=== PATIENT | female | born 1950 | race Two or more races ===

== ENCOUNTER 2024-03-17 07:43 | Inpatient (IN) | payer MEDICARE, BC ==
[~2024-03-17] VITALS: Ht 160 cm; Wt 55.8 kg
[2024-03-17] MEDS: SODIUM CHLORIDE 0.9% 1,000 ML IV SCH (10:00)
[2024-03-17] MEDS ORDERED: NITROGLYCERIN 0.4 MG SL TAB SL PRN (10:30)
[2024-03-17] MEDS ORDERED: ONDANSETRON HCL 4 MG/2 ML VIAL IV PRN (10:30)
[2024-03-17] MEDS ORDERED: MORPHINE SULFATE INJ 2 MG/ml SYRG IV PRN ×2 (10:30→17:00)
[2024-03-17 12:15] VITALS: BP 152/94; PULSE 103; RESP 20; TEMP 99.5; O2SAT 98
[2024-03-17 12:25] VITALS: O2SAT 95
[2024-03-17 13:00] VITALS: BP 152/94; PULSE 104; RESP 32; TEMP 99.5; O2SAT 98
[2024-03-17 13:02] LABS: Hematocrit 30.6 % (36.0-46.0); Hemoglobin 10.2 g/dL (12.2-16.2); Mean Corpuscular Hemoglobin 29.1 pg (28.0-32.0); Mean Corpuscular Hgb Conc. 33.2 g/dL (32.0-36.0); Mean Corpuscular Volume 87.5 fL (80.0-100.0); Red Cell Distribution Width 17.6 % (11.8-14.3); White Blood Cell 3.5 10^3/uL (4.4-10.8)
[2024-03-17 13:06] LABS: Basophils % (manual) 0 (0.0-2.0); Blast Cells 0; Metamyelocytes % 0; Myelocytes % 0; Promyelocytes % 0
[2024-03-17 13:13] LABS: INR 1.1 (0.9-1.15); Partial Thromboplastin Time 32.6 SEC (24.5-34.5); Prothrombin Time 11.5 sec (9.3-11.8)
[2024-03-17 13:15] LABS: Alanine Aminotransferase 69 U/L (7-40); Albumin 4.7 g/dL (3.2-4.8); Alkaline Phosphatase 137 U/L (46-116); Anion Gap 11 (5-15); Anisocytosis Slight; Aspartate Aminotransferase 68 U/L (13-40); BUN/Creatinine Ratio 10.6 (10.0-20.0); Band Neutrophils % (manual) 2; Bilirubin, Total 0.9 mg/dL (0.2-1.0); Blood Urea Nitrogen 7 mg/dL (9-23); Calcium 9.5 mg/dL (8.5-10.1); Carbon Dioxide 20 mmol/L (20-30); Chloride 107 mmol/L (98-107); Eosinophils % (manual) 1 (0-7); Glucose 99 mg/dL (74-106); Lymphocytes % (manual) 35 (10.0-50.0); Monocytes % (manual) 21 (0-12); Platelet Estimate Decreased; Reactive Lymphocytes 4; Sodium 138 mmol/L (136-145); Total Protein 7.2 g/dL (5.7-8.2)
[2024-03-17 13:25] LABS: CRP High Sensitivity 10.27 mg/dL (<1.0)
[2024-03-17] MEDS ORDERED: EMPA1TAB3 PO (13:33)
[2024-03-17] MEDS ORDERED: MONT-8 PO (13:33)
[2024-03-17] MEDS ORDERED: ROSU10TA16 PO (13:33)
[2024-03-17] MEDS ORDERED: LOSA-534 PO (13:33)
[2024-03-17] MEDS ORDERED: CYAN1TAB14 PO (13:33)
[2024-03-17] MEDS ORDERED: LEV75T PO (13:33)
[2024-03-17] MEDS ORDERED: ASCO500T11 PO (13:33)
[2024-03-17] MEDS ORDERED: MULT-1018 PO (13:33)
[2024-03-17] MEDS ORDERED: B-COCAP34 OR (13:33)
[2024-03-17] MEDS ORDERED: MAGN100C5 PO (13:33)
[2024-03-17] MEDS ORDERED: CHOL200031 PO (13:33)
[2024-03-17] MEDS ORDERED: DENO60SO SC (13:33)
[2024-03-17] MEDS ORDERED: METF-370 PO (13:33)
[2024-03-17] MEDS ORDERED: MAGN200T9 PO (13:33)
[2024-03-17] MEDS ORDERED: CALC-242 PO (13:33)
[2024-03-17] MEDS: ACETAMINOPHEN 325 MG TAB PO PRN (15:22)
[2024-03-17 17:00] VITALS: BP 107/69; PULSE 114; RESP 26; TEMP 98.4; O2SAT 94
[2024-03-17] MEDS ORDERED: DEXTROSE (50%) 50ML SYRG IV PRN (17:00)
[2024-03-17] MEDS: ACCU-CHEK COMFORT CURVE STRIP VI SCH (17:00)
[2024-03-17] MEDS: InsuLIN REG 1unit/0.01ml Soln (100units/ml) SC SCH (17:00)
[2024-03-17] MEDS ORDERED: hydrALAZINE HCL 20 MG/ML VL IV PRN (17:15)
[2024-03-17 18:41] LABS: Triglycerides 177 mg/dL (< 150)
[2024-03-17 18:42] LABS: LDL Cholesterol 51 mg/dL (< 100)
[2024-03-17 18:43] LABS: HDL Cholesterol 24 mg/dL (40-59)
[2024-03-17 18:44] LABS: Cholesterol 96 mg/dL (< 200)
[2024-03-17 18:49] LABS: Urine Bacteria None Seen /hpf (None Seen)
[2024-03-17 19:13] LABS: Wright Stain Ready for Review
[2024-03-17 19:26] LABS: Urine Blood TRACE /uL (Negative); Urine Clarity Clear (Clear); Urine Color Light-Yellow (Yellow); Urine Protein, UAD 1+ (Negative); Urine Urobilinogen Normal (Negative); Urine WBC 3 /hpf (0 - 5)
[2024-03-17 21:00] VITALS: BP 150/84; PULSE 92; RESP 20; TEMP 98.7; O2SAT 96
[2024-03-17] MEDS: MONTELUKAST SODIUM 10 MG TAB PO SCH (21:14)
[2024-03-18] VITALS (13 sets, daily range): BP systolic 117–164; BP diastolic 62–80; PULSE 91–117; RESP 18–22; TEMP 98.3–102.3; O2SAT 95–99
[2024-03-18 05:51] LABS: COVID19 ANTIGEN SOFIA FIA NEGATIVE (NEGATIVE); Rapid Influenza A Negative (Negative); Rapid Influenza B Negative (Negative)
[2024-03-18 06:59] LABS: Hematocrit 27.2 % (36.0-46.0); Hemoglobin 9.2 g/dL (12.2-16.2); Mean Corpuscular Hemoglobin 29.5 pg (28.0-32.0); Mean Corpuscular Hgb Conc. 33.7 g/dL (32.0-36.0); Mean Corpuscular Volume 87.4 fL (80.0-100.0); Red Blood Cells 3.11 10^6/uL (4.0-5.20); Red Cell Distribution Width 17.9 % (11.8-14.3); White Blood Cell 5.3 10^3/uL (4.4-10.8)
[2024-03-18] MEDS: LEVOTHYROXINE SODIUM 25 MCG TAB PO SCH (06:59)
[2024-03-18 07:17] LABS: Basophils % (manual) 0 (0.0-2.0); Blast Cells 0; Eosinophils % (manual) 0 (0-7); Metamyelocytes % 0; Myelocytes % 0; Promyelocytes % 0; Reactive Lymphocytes 0
[2024-03-18 07:19] LABS: Alanine Aminotransferase 63 U/L (7-40); Alkaline Phosphatase 127 U/L (46-116); Anion Gap 11 (5-15); Aspartate Aminotransferase 50 U/L (13-40); BUN/Creatinine Ratio 11.9 (10.0-20.0); Bilirubin, Total 0.7 mg/dL (0.2-1.0); Blood Urea Nitrogen 8 mg/dL (9-23); Carbon Dioxide 21 mmol/L (20-30); Chloride 107 mmol/L (98-107); Glucose 128 mg/dL (74-106); Potassium 3.5 mmol/L (3.5-5.1); Sodium 139 mmol/L (136-145); Total Protein 6.1 g/dL (5.7-8.2)
[2024-03-18 08:38] LABS: Band Neutrophils % (manual) 5; Lymphocytes % (manual) 31 (10.0-50.0); Monocytes % (manual) 30 (0-12)
[2024-03-18 08:40] LABS: Anisocytosis Slight; Platelet Estimate Decreased
[2024-03-18] MEDS: cefTRIAXone 1GM/50ML D5W 50 ML IV SCH (09:26)
[2024-03-18] MEDS: CHOLECALCIFEROL (VITD3) 1,000UNIT=25mCg TAB PO SCH (09:27)
[2024-03-18] MEDS: CYANOCOBALAMIN 500 MCG TAB PO SCH (09:27)
[2024-03-18] MEDS: EMPAGLIFLOZIN 10 MG TAB PO SCH (09:27)
[2024-03-18] MEDS: ASCORBIC ACID 500 MG TAB PO SCH (09:27)
[2024-03-18] MEDS: LOSARTAN POTASSIUM 50 MG TAB PO SCH (09:28)
[2024-03-18] MEDS: ALBUTEROL SULF 2.5 MG/0.5ML(0.5%) NEB SOLN NEB PRN (16:35)
[2024-03-18] MEDS: guaiFENesin-DM 100/10mg/5ml SYR PO PRN (17:07)
[2024-03-18] MEDS ORDERED: ALBUTEROL SULF HFA 90MCG INH 200DOSE IN SCH (22:00)
[2024-03-19] VITALS (11 sets, daily range): BP systolic 116–135; BP diastolic 63–79; PULSE 91–125; RESP 15–22; TEMP 97.8–101.3; O2SAT 94–99
[2024-03-19] MEDS: IOHEXOL 350 MG/ML 100ML IJ ONE (00:31)
[2024-03-19] MEDS: GADOTERATE MEG 10 MMOL/20ml INJ (0.5MMOL/ml) IV ONE (00:32)
[2024-03-19 07:17] LABS: Hematocrit 25.1 % (36.0-46.0); Hemoglobin 8.5 g/dL (12.2-16.2); Mean Corpuscular Hemoglobin 29.6 pg (28.0-32.0); Mean Corpuscular Volume 86.9 fL (80.0-100.0); Red Blood Cells 2.89 10^6/uL (4.0-5.20); Red Cell Distribution Width 17.7 % (11.8-14.3)
[2024-03-19 07:28] LABS: Basophils % (manual) 0 (0.0-2.0); Eosinophils % (manual) 0 (0-7); Metamyelocytes % 0; Myelocytes % 0; Promyelocytes % 0
[2024-03-19 07:39] LABS: Alanine Aminotransferase 81 U/L (7-40); Alkaline Phosphatase 128 U/L (46-116); Anion Gap 12 (5-15); Aspartate Aminotransferase 55 U/L (13-40); BUN/Creatinine Ratio 13.1 (10.0-20.0); Blood Urea Nitrogen 8 mg/dL (9-23); Calcium 8.6 mg/dL (8.5-10.1); Carbon Dioxide 19 mmol/L (20-30); Chloride 110 mmol/L (98-107); Glucose 99 mg/dL (74-106); Potassium 3.5 mmol/L (3.5-5.1); Sodium 141 mmol/L (136-145)
[2024-03-19 07:40] LABS: Albumin 3.9 g/dL (3.2-4.8)
[2024-03-19 07:41] LABS: Bilirubin, Total 0.7 mg/dL (0.2-1.0); Total Protein 6.2 g/dL (5.7-8.2)
[2024-03-19 08:24] LABS: Band Neutrophils % (manual) 3; Blast Cells 5; Lymphocytes % (manual) 41 (10.0-50.0); Monocytes % (manual) 18 (0-12); Reactive Lymphocytes 4
[2024-03-19 08:25] LABS: Platelet Estimate Decreased
[2024-03-19 08:53] LABS: Hepatitis B Core Total AB Negative (Negative)
[2024-03-19] MEDS: fentaNYL CITRATE 100 MCG/2 ML VL IV ONE (09:30)
[2024-03-19] MEDS: MIDAZOLAM HCL 2MG/2ML 2ml VIAL (1mg/ml) IV ONE (09:30)
[2024-03-19 09:40] LABS: Hepatitis A Total Antibody Positive (Negative); Hepatitis B Surface Antibody Negative (Negative); Hepatitis B Surface Antigen Negative (Negative); Hepatitis C Antibody Negative (Negative)
[2024-03-19 10:44] LABS: Free T4 (Free Thyroxine) 1.09 ng/dL (0.89-1.76)
[2024-03-19 10:45] LABS: Ferritin 500.9 ng/mL (10-291)
[2024-03-20] VITALS (8 sets, daily range): BP systolic 127–141; BP diastolic 72–81; PULSE 80–110; RESP 17–20; TEMP 98–101.3; O2SAT 92–98
[2024-03-20 06:05] LABS: Hematocrit 25.3 % (36.0-46.0); Hemoglobin 8.8 g/dL (12.2-16.2); Mean Corpuscular Hemoglobin 29.7 pg (28.0-32.0); Mean Corpuscular Hgb Conc. 34.7 g/dL (32.0-36.0); Mean Corpuscular Volume 85.5 fL (80.0-100.0); Red Blood Cells 2.96 10^6/uL (4.0-5.20); Red Cell Distribution Width 17.7 % (11.8-14.3); White Blood Cell 6.4 10^3/uL (4.4-10.8)
[2024-03-20 06:26] LABS: Albumin 4.1 g/dL (3.2-4.8); Bilirubin, Total 0.7 mg/dL (0.2-1.0); Total Protein 6.5 g/dL (5.7-8.2)
[2024-03-20] MEDS: HYDROcodone-ACET 5/325MG TAB PO PRN (06:59)
[2024-03-20 07:10] LABS: Bilirubin, Direct 0.3 mg/dL (<0.3); Promyelocytes % 0
[2024-03-20] MEDS: ENSURE CLEAR Mixed Berry 8oz Carton PO SCH (08:00)
[2024-03-20 09:07] LABS: Anti-Nuclear Antibody Direct Negative (Negative)
[2024-03-20 09:35] LABS: Band Neutrophils % (manual) 3; Basophils % (manual) 1 (0.0-2.0); Blast Cells 6; Eosinophils % (manual) 1 (0-7); Lymphocytes % (manual) 28 (10.0-50.0); Metamyelocytes % 1; Monocytes % (manual) 29 (0-12); Myelocytes % 2; Platelet Estimate Decreased; Reactive Lymphocytes 6
[2024-03-20] MEDS ORDERED: ENOXAPARIN SOD 40 MG/0.4 ML SYRINGE SC SCH (10:00)
[2024-03-20 10:06] LABS: EBV Ab VCA IgM Antibody <36.0 U/mL (0.0-35.9)
[2024-03-20] MEDS: IRON SUCROSE COMPLEX 100 ML IV SCH (12:18)
[2024-03-20] MEDS: LIDOCAINE 2%HCL (LOCAL ANESTH.) INJ 10ml MDV ONE (15:44)
== END 2024-03-20 15:10 | disposition short-term general hospital (02) | DRG 835 ==
LOC: CENTRAL 11:56 → TELE-CENTR 12:11 → CENTRAL 03-19 14:58
PROVIDERS: ADMIT Hospitalist; ATTEND Hospitalist
PROC: 07DR3ZX Extraction of Iliac Bone Marrow, Percutaneous Approach, Diagnostic (ICD-10-PCS; principal; 2024-03-19)
DX: C92.00 Acute myeloblastic leukemia, not having achieved remission (principal); D61.818 Other pancytopenia; E11.9 Type 2 diabetes mellitus without complications; I10 Essential (primary) hypertension; E03.9 Hypothyroidism, unspecified; E78.5 Hyperlipidemia, unspecified; R74.01 Elevation of levels of liver transaminase levels; Z80.0 Family history of malignant neoplasm of digestive organs; Z82.49 Family history of ischemic heart disease and other diseases of the circulatory system
CPT/HCPCS: 10005; 36415; 71260; 72157; 72158; 72192; 73620; 74177; 77012; 80053; 80061; 80076; 81001; 82306; 82550; 82607; 82728; 82962; 83540; 83615; 84439; 84443; 85007; 85027; 85045; 85060; 85610; 85730; 86038; 86141; 86664; 86704; 86706; 86708; 86803; 86880; 87040; 87070; 87081; 87086; 87205; 87340; 87426; 87804; 93306; 93970; 94640; G0378; J1756; J1815; J2001; J2250